=== PATIENT | male | born 1940 | race Caucasian/White ===

== ENCOUNTER → 2023-12-28 | Outpatient (CLI) | payer MEDICARE, BC, SELFPAY ==
[2023-12-28 08:56] LABS: Basophils % (Auto) 0 % (0-2.5); Eosinophils # (Auto) 0.1 Thou/mm3 (0.0-0.5); Eosinophils % (Auto) 1 % (0-10); Hematocrit 44.2 % (41.0-53.0); Hemoglobin 13.7 g/dL (13.5-16.0); Immature Granulocytes % (Auto) 1 % (0-0); Immature Granulocytes Auto 0.06 Thou/mm3 (0.00-0.00); Lymphocytes # (Auto) 0.9 Thou/mm3 (1.0-4.8); Lymphocytes % (Auto) 10 % (10-50); Mean Corpuscular Hemoglobin 29.5 pg (25.0-35.0); Mean Corpuscular Volume 95 fL (80-100); Monocytes # (Auto) 0.6 Thou/mm3 (0.0-0.8); Monocytes % (Auto) 6 % (0-12); Neutrophils # (Auto) 8.1 Thou/mm3 (1.8-7.7); Neutrophils % (Auto) 83 % (37-80); Nucleated Red Blood Cell % 0 /100 WBC (0); Platelet Count 167 Thou/mm3 (140-440); RDW Standard Deviation 53.7 fL (35.1-43.9); Red Blood Count 4.65 Miln/mm3 (4.50-5.90); White Blood Count 9.7 Thou/mm3 (3.8-10.6)
[2023-12-28 09:02] LABS: Glucose Estimated Average 189 mg/dL (80-131); Hemoglobin A1C 8.2 % Hgb (4.8-6.0)
[2023-12-28 09:08] LABS: B-Type Natriuretic Peptide < 20 pg/mL (0-100)
[2023-12-28 09:21] LABS: Alanine Aminotransferase 16 U/L (10-49); Albumin, Serum 4.3 gm/dL (3.4-4.8); Albumin/Globulin Ratio 1.9 (1.2-2.2); Alkaline Phosphatase 92 U/L (46-116); Anion Gap 5 (7-16); Aspartate Amino Transferase 12 U/L (0-34); BUN/Creatinine Ratio 24 Ratio (12-20); Bilirubin,Total 0.5 mg/dL (0.3-1.2); Blood Urea Nitrogen 24 mg/dL (9-23); Calcium 9.5 mg/dL (8.3-10.6); Calcium (Corrected) 9.5 mg/dL (8.5-10.1); Carbon Dioxide 31.4 mMol/L (20.0-31.0); Chloride 101 mMol/L (98-107); Globulin 2.3 gm/dL (2.3-3.5); Glucose 233 mg/dL (74-106); Osmolality,Calculated 284 (275-295); Potassium 5.3 mMol/L (3.4-5.1); Sodium 137 mMol/L (136-145); Total Protein 6.6 gm/dL (5.7-8.2); eGFR > 60 See Note
== END | disposition home or self-care (01) ==
LOC: COPL 07:43
PROVIDERS: PCP Internal Medicine; Referring Provider Internal Medicine; Visit Provider Internal Medicine
DX: E11.40 Type 2 diabetes mellitus with diabetic neuropathy, unspecified (principal)
CPT/HCPCS: 36415; 80053; 83036; 83880; 85025

== ENCOUNTER 2024-10-15 15:32 | Emergency (ER) | payer MEDICARE, BC, SELFPAY ==
[2024-10-15] VITALS (9 sets, daily range): BP systolic 116–146; BP diastolic 64–79; PULSE 91–99; RESP 16–20; TEMP 37.2–38.1; O2SAT 94–97; BMI 24.0
--- NOTE | 2024-10-15 15:51 | EKG_ITS ---
[facility] Test Date: 2024-10-15 Pat Name: SHALA HINOJOSA Department: Room: - Gender: Male It Infrastructure Consultant: : [id number] Requested By: Bud Carlisle Order Number: [id number] Reading MD: Bud Carlisle Measurements Intervals [place] Rate: 91 P: 72 IA: 168 QRS: -23 QRSD: 85 T: 53 QT: 340 QTc: 419 Interpretive Statements SINUS RHYTHM BORDERLINE LEFT AXIS DEVIATION [QRS AXIS < -20] VOLTAGE CRITERIA FOR LVH [MEETS CRITERIA IN ONE OF: R(aVL), S(V1), R(V5), R(V5/V6)+S(V1)] NONSPECIFIC T-WAVE ABNORMALITY Compared to ECG 04/03/2023 18:06:28 T-wave abnormality now present Sinus tachycardia no longer present /store/S0/[id number]/ecg/[id number].pdf
--- NOTE | 2024-10-15 15:51 | XR_ITS ---
Examination: AP chest single view Technique one AP semiupright portable chest single view Date and time: October 15, 2024 1608 hrs. Indications: Shortness of breath today. Findings: Again noted extensive bilateral parenchymal disease Mild prominence of ventricle Prominent osteopenia Impression: Again noted extensive bilateral parenchymal disease
--- NOTE | 2024-10-15 16:09 | PD.EDADULT ---
ED General RME/HPI General Chief complaint: Shortness of Breath/Dyspnea Stated complaint: LOW SATURATION Time Seen by Provider: 10/15/24 15:50 Arrival date/time: 10/15/24 15:32 CC: Low oxygenation saturations at home on 2 L nasal cannula HPI patient is on oxygen secondary to lung scarring after pneumonia. reports oxygen saturations of 82% patient denies any other symptoms including cough fever chills nausea vomiting sore throat. EMS report oxygen saturations of 88% on 2 L and increased to 6 L resulting in oxygen saturations of 94%. Upon initial assessment patient is warm to touch and mildly tachypneic. Related Data Home Medications ?Medication ?Instructions ?Recorded ?Confirmed atorvastatin 10 mg tablet 10 mg PO HS 11/30/22 04/04/23 carvedilol 12.5 mg tablet 12.5 mg PO BIDWM 11/30/22 04/04/23 gabapentin 300 mg capsule 300 mg PO BID 11/30/22 04/04/23 ramipril 10 mg capsule 10 mg PO Q12H 11/30/22 04/04/23 sitagliptin phosphate 100 mg 100 mg PO QDAY 11/30/22 04/04/23 tablet (Januvia) spironolactone 25 mg tablet 25 mg PO QDAY 11/30/22 04/04/23 amlodipine 10 mg tablet 10 mg PO QDAY 12/01/22 04/04/23 metronidazole 0.75 % lotion 1 applic topical BID 04/04/23 04/04/23 Previous Rx's ?Medication ?Instructions ?Recorded insulin lispro 100 unit/mL 1 sliding scale dose subcut 04/08/23 subcutaneous solution USEASDIRECTD #10 mL prednisone 10 mg tablet 10 mg PO QDAY #79 tabs 04/08/23 ciprofloxacin HCl 500 mg tablet 500 mg PO BID #14 tabs 10/15/24 (Cipro) Allergies Allergy/AdvReac Type Severity Reaction Status Date / Time wheat Allergy Severe Abdominal Verified 04/03/23 17:55 Pain Review of Systems Review of Systems Narrative Review of Systems: GEN: No fever, no chills, no weight loss EYES: No discharge, no visual changes, no pain HEENT: No ear pain, no congestion, no sore throat PULM: No shortness of breath, no cough, no congestion CV: No chest pain, no dyspnea on exertion, no palpitations GI: No nausea, no vomiting, no diarrhea, no pain, no constipation : No frequency, no urgency, no dysuria MUSC/SKEL: No joint pain, no back pain SKIN: No rash PSYCH: No hallucinations, no depression HEME/LYMPH: No easy bleeding or bruising tendencies NEURO: No weakness, no headache Past Medical History Past Medical History NEUROLOGIC: Negative Neurological Disorders CARDIAC: Positive Hypercholesterolemia and Hypertension; Negative Cardiac Disorders, Congestive Heart Failure, Rheumatic Fever or Hypotension RESPIRATORY: Positive Asthma and Pneumonia; Negative Chronic Obstructive Pulmonary Disease (COPD) GASTROINTESTINAL: Negative Hepatitis GENITOURINARY: Positive Benign Prostatic Hyperplasia (self caths); Negative Genitourinary Disorders or Renal Disease REPRODUCTIVE: Negative Testicular Cancer MUSCULOSKELETAL: Negative Musculoskeletal Disorders ENT: Positive Blind ENDOCRINE: Positive Diabetes Mellitus Type 2; Negative Diabetes Mellitus Type 1 HEMATOLOGIC: Negative Blood Disorders or Sickle Cell Disease OTHER HISTORY: Positive Hospitalization, Falls, Blood Transfusions, Anesthesia Reactions and Chicken Pox; Negative Autoimmune Disease, Shingles, Blood Transfusion Reaction, Organ Transplant, Chemotherapy, Measles, Cancer or Testicular Cancer Family History FAMILY HISTORY: Positive Family Cardiac Disorders (Father had heart disease) and Family Surgery; Negative Family Psychiatric Problems, Family Respiratory Disorders, Family Gastrointestinal Problems, Family Cancer or Family Anesthesia Reaction Surgical History SURGICAL: Positive Tonsillectomy and Abdominal Surgery; Negative Cardiac Surgery, Endocrine Surgery, Ear Surgery, Vasectomy or Organ Transplant Social History SMOKING STATUS: Never smoker ED Exam Narrative Physical exam: [General: Appears not in any acute distress Head normocephalic HEENT: Within acceptable limits Neck is supple nontender Chest equal chest rise nontender to palpation Respiratory: Clear to auscultation no wheezes crackles or rubs CV: Rate rhythm is regular no murmurs rubs or clicks Abdomen is distended secondary to body habitus soft nontender no masses positive bowel sounds all 4 quadrants Back: No CVA tenderness no spinous process tenderness from cervical spine thoracic and lumbar spine Skin: Intact no petechiae rash induration ulceration or crepitus Extremities: Moving all extremity against resistance cap refill less than 2 seconds neurosensory intact. No lower extremity edema. Neuro: Awake alert oriented x2, person and place, Glascow coma 15 no focal deficits] Course Course Course Narrative: Discussed with family. The patient has a urinary tract infection, patient needs to be remain on 4 L nasal cannula until finished with the antibiotics for the UTI and then turned back to 2 L to determine if the oxygen saturation improves on 2 L nasal cannula. Patient is in agreement with this plan. Quality Measures none Orders Category Date Time Status Promotional Demonstrator STAT Care 10/15/24 15:51 Active Continuous Pulse Oximetry STAT Care 10/15/24 15:51 Completed EKG (ED ONLY) *Do not use* NOW Care 10/15/24 15:51 Completed In and Out Catheter X1PRN Care 10/15/24 15:51 Completed Insert IV NOW Care 10/15/24 15:51 Active NPO STAT Care 10/15/24 15:51 Active Strict Intake and Output Routine Care 10/15/24 15:[address] chest wo con Stat Exams 10/15/24 16:37 Completed EKG (ED Only) Stat Exams 10/15/24 15:51 Draft XR chest 1V SEPSIS PROTOCOL Stat Exams 10/15/24 15:51 Completed B-Type Natriuretic Peptide Stat Lab 10/15/24 16:10 Completed Blood Culture (Lab) Stat Lab 10/15/24 16:05 Received CBC Stat Lab 10/15/24 16:10 Completed Comprehensive Metabolic Panel Stat Lab 10/15/24 16:10 Results LDH (Lactate Dehydrogenase) Stat Lab 10/15/24 16:10 Results Lactate (Lactic Acid) Stat Lab 10/15/24 16:10 Completed Lipase Stat Lab 10/15/24 16:10 Results Magnesium Stat Lab 10/15/24 16:10 Results Partial Thromboplastin Time Stat Lab 10/15/24 16:10 Completed Phosphorous Stat Lab 10/15/24 16:10 Results Procalcitonin Stat Lab 10/15/24 16:10 Results Prothrombin Time with INR Stat Lab 10/15/24 16:10 Completed Troponin I Stat Lab 10/15/24 16:10 Results Urinalysis, C/S if Indicated Stat Lab 10/15/24 16:35 Completed Urine Culture Stat Lab 10/15/24 16:35 Received cefTRIAXone/D5w 1gm IV premix [Rocephin/D5w 1gm IV Med 10/15/24 17:34 Discontinued premix] 1 gm in 50 ml IV X1 Oxygen Delivery NOW RT 10/15/24 15:51 Active Vital Signs Vital signs: Vital Signs Temperature 99.2 F 10/15/24 15:39 Pulse Rate 93 10/15/24 15:39 Respiratory Rate 18 10/15/24 15:39 Blood Pressure 136/79 H 10/15/24 15:39 Pulse Oximetry (%) 96 10/15/24 15:39 Oxygen Delivery Method Nasal Cannula 10/15/24 15:39 Oxygen Flow Rate 3 10/15/24 15:39 Discharge Plan Plan Patient Disposition: HOME (Self Care) Patient condition on transfer: Stable Prescriptions/Referrals Prescriptions/Med Rec: New ciprofloxacin HCl [Cipro] 500 mg tablet 500 mg PO BID Qty: 14 0RF No Action carvedilol 12.5 mg tablet 12.5 mg PO BIDWM Patient Comments: TAKE 1 TABLET BY MOUTH TWICE A DAY WITH MEALS atorvastatin 10 mg tablet 10 mg PO HS Patient Comments: TAKE 1 TABLET BY MOUTH EVERYDAY AT BEDTIME spironolactone 25 mg tablet 25 mg PO QDAY Patient Comments: TAKE 1 TABLET BY MOUTH EVERY DAY gabapentin 300 mg capsule 300 mg PO BID Patient Comments: TAKE 1 CAPSULE BY MOUTH TWICE A DAY ramipril 10 mg capsule 10 mg PO Q12H Patient Comments: TAKE ONE CAPSULE BY MOUTH EVERY 12 HOURS Januvia 100 mg tablet 100 mg PO QDAY Patient Comments: TAKE 1 TABLET BY MOUTH EVERY DAY amlodipine 10 mg tablet 10 mg PO QDAY Patient Comments: TAKE 1 TABLET BY MOUTH EVERY DAY metronidazole 0.75 % Lotion 1 applic TOPICAL BID Rx Instructions: apply to face prednisone 10 mg tablet 10 mg PO QDAY Qty: 79 0RF Taper: Prednisone Taper 70 mg DAILY for 2 Days and 0 Hour 60 mg DAILY for 3 Days and 0 Hour 50 mg DAILY for 3 Days and 0 Hour 40 mg DAILY for 3 Days 30 mg DAILY for 3 Days 20 mg DAILY for 3 Days 10 mg DAILY for 3 Days 5 mg DAILY for 7 Days insulin lispro 100 unit/mL solution 1 sliding scale dose subcut USEASDIRECTD Qty: 10 0RF Referrals: Rahul Vazquez MD [Primary Care Provider] - In 1 week Problem List Clinical Impression: Urinary tract infection, Hyperglycemia Patient/Caregiver Discharge Instructions Education Materials: ED Bladder Infection, Male (Adult) Additional Instructions: Take the medications as prescribed follow-up with your primary care doctor if there is worsening of symptoms in spite of these medications return the emergency room medially for further evaluation. Print Language: Spanish Stand Alone Forms: Melvi Award Info., Patient Portal Info Letter PA/VENEER PULLER Supervising Physician PA/VENEER PULLER Supervising Physician: Bud Vazquez ENP [facility] Clinical Information Provided by patient and EMS Medical Records Reviewed [facility] and EMS Meds/Rx Considered, not Ordered None Labs/Rad/Tests considered, not Ordered None Chronic Illness/Social Conditions which may negatively complicate care or outcome(s)-explain: None or not applicable EKG EKG Interpretation narrative: EKG performed at 1603 ventricular of 9 1 [place] interval 168 QRS of 85 QTc of 389 this is sinus rhythm border left axis deviation. Lab Interpretation Lab(s) interpretation(s): CBC shows a mild leukocytosis of 13.3 H&H of 12.7 and 42.1. Platelets at 168. Coags within acceptable limits BMP at 24 and Urine is positive for urinary tract infection nitrite positive RBCs at 25 WBCs at 70 33+ bacteria. CMP shows no significant electrolyte imbalances glucose of 340 no renal impairment transaminitis or T. bili elevation. Phos Joel within excepted within acceptable limits. BNP is negative Imaging Provider imaging interpretation(s): CT of the chest shows old scarring and no superimposed pneumonia. Chest x-ray as interpreted by me read by radiology shows old scarring but no acute infiltrate. Medication Administration(s) Medication Administration History Discontinued Medications Ceftriaxone Sodium/Dextrose (Rocephin/D5w 1gm Iv Premix) 1 gm in 50 mls @ 100 mls/hr IV X1 ONE Stop: 10/15/24 18:03 Last Infusion: 10/15/24 18:45 Dose: Infused Documented By: Admin: 10/15/24 17:45 Dose: 100 mls/hr Documented By: VERA
[2024-10-15 16:22] LABS: Basophils # (Auto) 0.0 Thou/mm3 (0.0-0.2); Basophils % (Auto) 0 % (0-2.5); Eosinophils # (Auto) 0.0 Thou/mm3 (0.0-0.5); Eosinophils % (Auto) 0 % (0-10); Hematocrit 42.1 % (41.0-53.0); Hemoglobin 12.7 g/dL (13.5-16.0); Immature Granulocytes Auto 0.07 Thou/mm3 (0.00-0.00); Lactate (Lactic Acid) 1.5 mMol/L (0.4-2.0); Lymphocytes # (Auto) 0.9 Thou/mm3 (1.0-4.8); Lymphocytes % (Auto) 7 % (10-50); Mean Corpuscular HGB Conc 30.2 g/dl (31.0-37.0); Mean Corpuscular Hemoglobin 28.6 pg (25.0-35.0); Mean Corpuscular Volume 95 fL (80-100); Monocytes # (Auto) 0.8 Thou/mm3 (0.0-0.8); Monocytes % (Auto) 6 % (0-12); Neutrophils # (Auto) 11.6 Thou/mm3 (1.8-7.7); Neutrophils % (Auto) 87 % (37-80); Nucleated Red Blood Cell # 0.00 Thou/mm3 (0.00-0.00); Nucleated Red Blood Cell % 0 /100 WBC (0); Platelet Count 168 Thou/mm3 (140-440); RDW Standard Deviation 53.7 fL (35.1-43.9); Red Blood Count 4.44 Miln/mm3 (4.50-5.90); White Blood Count 13.3 Thou/mm3 (3.8-10.6)
[2024-10-15 16:37] LABS: INR 0.9 (0.9-1.3); Partial Thromboplastin Time 24.8 Seconds (22.0-36.0); Prothrombin Time 10.4 Seconds (9.0-12.2)
--- NOTE | 2024-10-15 16:37 | XR_ITS ---
Examination: CT chest, without intravenous contrast. Sagittal and coronal 2-D reconstructions. Exam date and time: 10/15/2024 1530 hrs. SOB 3 days Technique: Multiple 3.0 mm axial sections of the chest to been obtained. Bone and lung density settings are obtained. Sagittal and coronal 2-D reconstructions have been obtained. Low dose protocols were performed. One or more of the following dose reduction techniques were used; automated exposure control, adjustment of the mA and/or KV according to patient size, use of iterative reconstruction technique. Findings: No thoracic aortic aneurysmal dilatation . No mediastinal adenopathy Extensive parenchymal disease at the lung bases, pneumonia and scarring Differential would also include aspirated barium No liver or splenic lesions Absent gallbladder Impression: Abnormal opacity at the lung bases, differential as above
[2024-10-15 16:42] LABS: B-Type Natriuretic Peptide 24 pg/mL (0-100)
[2024-10-15 16:47] LABS: Collection Type, Urine Clean Catch
[2024-10-15 17:10] LABS: Bacteria,Urine 3+; Bilirubin,Urine Negative (Negative); Blood,Urine 1+ (Negative); Color,Urine Lt-Yellow (Lt Yel-Yel); Glucose, Urine 4+ (Negative); Ketones,Urine Negative (Negative); Leukocyte Esterase,Urine Positive (Negative); Nitrite,Urine Positive (Negative); PH,Urine 6.5 (5.0-7.0); Protein,Urine Negative (Neg - Trace); RBC,Urine 23 /hpf (0-3); Specific Gravity,Urine 1.026 (1.001-1.035); Squamous Epithelial Cell,Urine < 1 /hpf (0-5); Urobilinogen,Urine Negative mg/dL (0.0-1.0); WBC,Urine 73 /hpf (0-5)
[2024-10-15 17:11] LABS: Clarity,Urine Hazy (Clear/Hazy); Culture Indicated,Urine Yes
[2024-10-15] MEDS: cefTRIAXone/D5w 1gm IV premix 1 GM/50 ML BAG IV (17:45)
[2024-10-15 18:37] LABS: Alanine Aminotransferase < 7 U/L (10-49); Albumin, Serum 3.9 gm/dL (3.4-4.8); Albumin/Globulin Ratio 1.9 (1.2-2.2); Alkaline Phosphatase 87 U/L (46-116); Anion Gap 9 (7-16); Aspartate Amino Transferase 12 U/L (0-34); BUN/Creatinine Ratio 16 Ratio (12-20); Bilirubin,Total 0.5 mg/dL (0.3-1.2); Blood Urea Nitrogen 18 mg/dL (9-23); Calcium 9.0 mg/dL (8.3-10.6); Calcium (Corrected) 9.1 mg/dL (8.5-10.1); Carbon Dioxide 29.2 mMol/L (20.0-31.0); Chloride 99 mMol/L (98-107); Creatinine (Component) 1.1 mg/dL (0.6-1.3); Estimated Creatinine Clearance 56.8 mL/min (>60); Globulin 2.1 gm/dL (2.3-3.5); Glucose 340 mg/dL (74-106); LDH (Lactate Dehydrogenase) 131 U/L (120-246); Magnesium 2.0 mg/dL (1.6-2.6); Osmolality,Calculated 288 (275-295); Phosphorous 3.0 mg/dL (2.4-5.1); Potassium 4.5 mMol/L (3.4-5.1); Procalcitonin 0.10 ng/ml (0.0-0.49); Sodium 137 mMol/L (136-145); Total Protein 6.0 gm/dL (5.7-8.2); Troponin I < 0.020 ng/mL (0.0-0.045); eGFR > 60 See Note
[2024-10-15 22:02] LABS: Lipase 28 U/L (12-53)
== END 2024-10-15 19:21 | disposition home or self-care (01) ==
PROVIDERS: Registered Nurse General Practice; Emergency Provider Emergency Medicine; PCP Internal Medicine
DX: N39.0 Urinary tract infection, site not specified (principal); R73.9 Hyperglycemia, unspecified
CPT/HCPCS: 36415; 71045; 71250; 80053; 81001; 83605; 83615; 83690; 83735; 83880; 84100; 84145; 84484; 85025; 85610; 85730; 87040; 87077; 87086; 87186; 93005; 96365; 99284; J0696